=== PATIENT | male | born 1975 | race Caucasian/White ===

== ENCOUNTER 2019-05-14 13:15 | Emergency (ER) | payer SELFPAY ==
[~2019-05-14] VITALS: Ht 177.8 cm; Wt 80.0 kg
[~2019-05-14 13:15] MED LIST: DEEP SEA NASAL0.65 %; NO HOME MEDS
[2019-05-14 13:40] LABS: IMMATURE GRANULOCYTES 0.4 % (0.0-5.0); MEAN CELL VOLUME 89.7 fL CALC (80.0-100.0); MEAN CORPUSCULAR HGB 31.6 pG CALC (26.0-32.0); MEAN CORPUSCULAR HGB CONC 35.2 g/L CALC (32.0-36.0); NEUT# 5.84 thou/uL (1.82-7.42); RED BLOOD COUNT 5.45 mill/uL (4.70-6.10)
[2019-05-14 13:41] LABS: HEMATOCRIT 48.9 % (39.0-50.0); HEMOGLOBIN 17.2 g/dl (14.0-18.0)
[2019-05-14 14:02] LABS: ALKALINE PHOSPHATASE 90 u/l (38-126); ANION GAP 21 (6-22 (CALC)); BUN 15 mg/dL (9-20); BUN/CREATININE RATIO 11 (12-20 (CALC)); CARBON DIOXIDE 23 mmol/l (22-30); CHLORIDE 99 mmol/l (95-108); CREATININE 1.4 mg/dL (0.7-1.3); GFR 55 ML/MIN (>=60 (CALC)); GFR FOR AFR.AMER. > 60 ML/MIN (>=60 (CALC)); POTASSIUM 4.6 mmol/l (3.5-5.1); SODIUM 139 mmol/l (137-146)
[2019-05-14 14:06] LABS: ALBUMIN 5.5 g/dL (3.2-5.0); SGOT/AST 60 u/l (17-59); TOTAL PROTEIN 9.4 g/dL (6.3-8.2)
[2019-05-14] MEDS ORDERED: LISINOPRIL20 MG PO (14:37)
[2019-05-14 14:40] VITALS: BP 149/97
== END 2019-05-14 15:07 | disposition home or self-care (01) | DRG 305 ==
LOC: ED 13:15
PROVIDERS: Emergency Medicine
DX: I10 Essential (primary) hypertension (principal)

== ENCOUNTER 2021-01-04 10:40 | Emergency (ER) | payer BC ==
[~2021-01-04] VITALS: Ht 177.8 cm; Wt 90.0 kg
[~2021-01-04 10:40] MED LIST changes: +LISINOPRIL20 MG PO
[2021-01-04] MEDS ORDERED: BLOOD PRESSURE PILL PO (11:40)
[2021-01-04 11:51] LABS: HEMOGLOBIN 15.9 g/dl (14.0-18.0); IMMATURE GRANULOCYTES 0.1 % (0.0-5.0); MEAN CELL VOLUME 90.5 fL CALC (80.0-100.0); MEAN CORPUSCULAR HGB CONC 35.3 g/dL CAL (32.0-36.0); NEUT# 4.43 thou/uL (1.82-7.42); RED BLOOD COUNT 4.97 mill/uL (4.70-6.10); RED CELL DISTRI WIDTH 13.1 % (11.5-15.5)
[2021-01-04 12:09] LABS: ANION GAP 18 (6-22 (CALC)); BUN 10 mg/dL (9-20); BUN/CREATININE RATIO 12 (12-20 (CALC)); CARBON DIOXIDE 24 mmol/l (22-30); CHLORIDE 96 mmol/l (95-108); CREATININE 0.8 mg/dL (0.7-1.3); GFR > 60 ML/MIN (>=60 (CALC)); GFR FOR AFR.AMER. > 60 ML/MIN (>=60 (CALC)); POTASSIUM 4.5 mmol/l (3.5-5.1); SODIUM 134 mmol/l (137-146)
[2021-01-04 13:50] VITALS: BP 122/76
== END 2021-01-04 14:00 | disposition home or self-care (01) | DRG 313 ==
LOC: ED 10:40
PROVIDERS: Family Medicine
DX: R07.9 Chest pain, unspecified (principal); I10 Essential (primary) hypertension; R20.2 Paresthesia of skin

== ENCOUNTER 2023-06-05 14:00 | Emergency (ER) | payer SELFPAY ==
[~2023-06-05] VITALS: Ht 177.8 cm; Wt 76.7 kg
[2023-06-05] VITALS (16 sets, daily range): BP systolic 128–158; BP diastolic 87–109
[~2023-06-05 14:00] MED LIST changes: +BLOOD PRESSURE PILL PO
[2023-06-05 14:49] LABS: ALBUMIN 5.3 g/dL (3.2-5.0); ALKALINE PHOSPHATASE 98 u/l (38-126); ANION GAP 19 (6-22 (CALC)); BILIRUBIN, TOTAL 0.9 mg/dL (0.2-1.3); BUN 12 mg/dL (9-20); BUN/CREATININE RATIO 14 (12-20 (CALC)); CARBON DIOXIDE 22 mmol/l (22-30); CHLORIDE 103 mmol/l (95-108); CREATININE 0.9 mg/dL (0.7-1.3); GFR FOR AFR.AMER. > 60 ML/MIN (>=60 (CALC)); GFR OTHER RACES > 60 ML/MIN (>=60 (CALC)); POTASSIUM 4.4 mmol/l (3.5-5.1); SODIUM 140 mmol/l (137-146)
[2023-06-05 14:56] LABS: BASO% 0.1 % (0-3); EOS% 0.7 % (0-8); HEMATOCRIT 49.6 % (39.0-50.0); HEMOGLOBIN 17.1 g/dl (14.0-18.0); IMMATURE GRANULOCYTES 0.4 % (0.0-5.0); LYMPH% 9.3 % (15-41); MEAN CELL VOLUME 93.2 fL CALC (80.0-100.0); MEAN CORPUSCULAR HGB 32.1 pG CALC (26.0-32.0); MEAN CORPUSCULAR HGB CONC 34.5 g/dL CAL (32.0-36.0); MONO% 7.4 % (2-13); NEUT# 8.71 thou/uL (1.82-7.42); NEUT% 82.1 % (42-76); RED BLOOD COUNT 5.32 mill/uL (4.70-6.10); RED CELL DISTRI WIDTH 13.4 % (11.5-15.5)
[2023-06-05 15:07] LABS: SGOT/AST 122 u/l (17-59)
== END 2023-06-05 17:45 | disposition home or self-care (01) | DRG 313 ==
LOC: ED 14:00
PROVIDERS: Family Medicine
DX: R07.9 Chest pain, unspecified (principal); I10 Essential (primary) hypertension